=== PATIENT | female | born 1945 | race Hispanic/Latino ===

== ENCOUNTER 2016-05-12 07:54 | Outpatient (CLI) | payer MEDICARE ==
--- NOTE | 2016-05-12 09:40 | Ultrasound Report ---
ULTRASOUND ABDOMEN LIMITED INDICATION: Nonspecific elevation of transaminase and lactic acid dehydrogenase levels. COMPARISON: None similar. FINDINGS: Right upper quadrant sonography demonstrates diffusely echogenic liver with grossly preserved contours. No definite focal suspicious lesions or biliary dilatation. No gallstones or pericholecystic fluid. Gallbladder wall thickness is 2.8 mm. Common bile duct is 5.6 mm. Imaged pancreas, nonaneurysmal abdominal aorta, IVC and the right kidney appear within normal limits. CONCLUSION: Fatty liver without acute sonographic abnormality, as described. Thank you for the opportunity to participate in this patient's care.
== END 2016-05-12 07:55 | disposition home or self-care (01) ==
LOC: US 07:54
PROVIDERS: ATTEND Family Medicine
DX: K76.0 Fatty (change of) liver, not elsewhere classified (principal)
CPT/HCPCS: 76705

== ENCOUNTER 2017-05-30 09:29 | Outpatient (CLI) | payer MEDICARE ==
--- NOTE | 2017-05-30 10:43 | Cat Scan Report ---
CT ABDOMEN AND PELVIS WITHOUT CONTRAST INDICATION: Right upper quadrant abdominal tenderness. COMPARISON: 05/12/2016 [facility] ultrasound. FINDINGS: Noncontrast abdomen and pelvis CT performed. LUNG BASES: Dense coronary and aortic atherosclerotic calcifications. A 8 mm left infrahilar benign calcification, axial image 34, series 2. Nonspecific distal esophageal wall prominence/thickening, not excluded for gastroesophageal reflux and/or hiatal hernia, amongst others. ABDOMEN: Please note that sensitivity to detect small visceral lesions is limited due to the absence of intravenous or oral contrast. Multiple splenic and few small hepatic calcified granulomas. Indeterminate 4 mm left hepatic hypodensity anteriorly as on axial image 94, series 2. Prominent/mildly enlarged liver, approximately 19 cm in mid clavicular length. Subtle left hepatic lobe waviness inferiorly and tiny recannulized paraumbilical vein also seen. No CT confirmation of fatty liver. Otherwise grossly unremarkable unenhanced liver, spleen, gallbladder, pancreas, adrenals, nonaneurysmal abdominal aorta with few atherosclerotic calcifications, IVC and kidneys. Slight bilateral perinephric stranding. Few tiny bilateral renal calcifications as approximately 3 mm left interpolar calculus, axial image 181, series 2. Small bilateral extrarenal pelves. Few small, subcentimeter mesenteric and retroperitoneal lymph nodes. No ascites. Nonopacified GI tract evaluation limited, though grossly nonobstructive. Slight diffuse exaggerated gastric wall thickness, possibly suboptimally distended. Mild to moderate stool through colon/possible constipation. PELVIS: Uterus surgically absent. Right posterolateral urinary bladder extension noted somewhat asymmetrically more than the left as on axial image 356, series 2, amongst others. Rectosigmoid stool. No free fluid or significant adenopathy. Bilateral inguinal canal region approximately 2 cm diameter fatty prominence. Mild multilevel imaged spinal degenerative spurring, predominantly lower thoracic. CONCLUSION: 1. Somewhat prominent/mildly enlarged liver, questionably cirrhotic. Please correlate. 2. No other significant acute CT abnormality on this limited, unenhanced exam with various incidental findings as tiny nonobstructing bilateral renal calcifications, old healed granulomatous disease, distal esophageal prominence/thickening, and hysterectomy, amongst others, as above. Thank you for the opportunity to participate in this patient's care.
== END 2017-05-30 09:30 | disposition home or self-care (01) ==
LOC: CT 09:29
PROVIDERS: ATTEND Family Medicine
DX: R10.811 Right upper quadrant abdominal tenderness (principal); N30.01 Acute cystitis with hematuria; I25.10 Atherosclerotic heart disease of native coronary artery without angina pectoris; I70.0 Atherosclerosis of aorta; N28.89 Other specified disorders of kidney and ureter; M53.84 Other specified dorsopathies, thoracic region; Z90.710 Acquired absence of both cervix and uterus
CPT/HCPCS: 74176

== ENCOUNTER 2017-07-05 08:18 | Outpatient (CLI) | payer MEDICARE ==
--- NOTE | 2017-07-05 09:45 | XRay Report ---
XRAY RIGHT KNEE 4 THREE VIEWS: 07/05/17 CLINICAL: Status post knee replacement. No comparison. FINDINGS: Moderate osteopenia. Status post total joint replacement.The medial and lateral joint spaces are relatively wide but I suspect this is a feature related to the particular prosthesis. Normal soft tissues no apparent joint effusion. Vascular calcifications in otherwise normal soft tissues. IMPRESSION: Status post total joint replacement.
== END 2017-07-05 08:19 | disposition home or self-care (01) ==
LOC: SPVIMAG 08:18
PROVIDERS: ATTEND Orthopaedic Surgery Sports Medicine
DX: Z47.1 Aftercare following joint replacement surgery (principal); M85.88 Other specified disorders of bone density and structure, other site; Z96.651 Presence of right artificial knee joint